=== PATIENT | female | born 1990 | race Hispanic/Latino ===

== ENCOUNTER 2019-09-26 14:09 | Outpatient (CLI) | payer OTHER ==
--- NOTE | 2019-09-26 16:08 | ULT ---
Ultrasound left neck: DATE: 09/26/2019 HISTORY: 29-year-old female with palpable lump, ICD-10: "R 59.1 lymphadenopathy of head and neck" TECHNIQUE: Focused ultrasound using high frequency transducer, of the palpable lump. FINDINGS: Images are labeled as "just below inferior/upper jaw" and demonstrate a well-circumscribed, very hypo echoic 1.4 x 0.9 x 0.7 cm superficially located mass. It has a small fatty hilum that has blood flow. The findings are consistent with a lymph node. This mass is surrounded on at least 3 sides by h omogeneously hyperechoic tissue which presumably represents parotid parenchyma. If so, then this would be an intraparotid lymph node. IMPRESSION: based on the above information, this is consistent with a slightly prominent intraparotid lymph node.
== END 2019-09-26 14:10 | disposition home or self-care (01) ==
LOC: BICULT 14:09
PROVIDERS: ATTEND Family Medicine
DX: R59.1 Generalized enlarged lymph nodes (principal)
CPT/HCPCS: 76536

== ENCOUNTER 2019-10-25 15:03 | Outpatient (CLI) | payer OTHER ==
[~2019-10-25 15:03] MED LIST: Iopamidol-370 76% 500 ML 1 ML ONE
--- NOTE | 2019-10-25 16:20 | CT ---
CT neck soft tissues with contrast: 10/25/2019 HISTORY: 29-year-old female with left parotid mass FINDINGS: At the posterior edge of the superficial lobe of the left parotid gland, there is an approximately 1. 2 x 0.6 x 1 cm moderately enhancing well-circumscribed soft tissue density nodule with fairly homogeneous attenuation. Based on the fact that there are other, similar appearing nodules (but small er,) the contralateral right parotid gland, and based on the appearance of the ultrasound of 09/26/2019, this is consistent with a mildly enlarged intraparotid lymph node. There are multiple enlarged left level IIb enlarged lymph nodes. For example, a typical one measures approximately 1 x 1.5 x 1.5 cm. In addition to numerous shotty multilevel bilateral cervical lymph nodes, bilateral supraclavicular l ymph nodes that are mildly enlarged, on the order of approximately slightly greater than 1 cm in greatest dimension each, have somewhat abnormally round shapes. There is an unusual tight cluster of several lymph nodes in the right supraclavicular region. There are bilateral mildly enlarged level 1B lymph nodes. There is an enlarged 1.5 x 1 x 0.8 cm lymph node anterior to the left external auditory canal. Thyroid gland is at the upper limits of normal in size. Larynx is normal. Bilateral submandibular gla nds are normal. The right palatine tonsil appears asymmetrically slightly thicker than the left. Normal lingual tonsi l. Mild adenoid prominence is not unusual for this age. No destructive osseous lesion. No abscess. Other than the lymph nodes, no significant abnormality is identified involving the parapharyngeal, re tropharyngeal, sublingual, submandibular, camera systems engineer, and posterior cervical, spaces. IMPRESSION: 1.) Nonspecific cervical lymphadenopathy. This consists of a cluster of multiple enlarged left level IIb lymph nodes, and several mildly enlarged bilateral supraclavicular lymph nodes. 2) the palpable left parotid mass represents the largest one of several mildly enlarged intraparotid lymph nodes
== END 2019-10-25 15:04 | disposition home or self-care (01) ==
LOC: BICCT 15:03
PROVIDERS: ATTEND Otolaryngology Plastic Surgery within the Head & Neck
DX: K11.8 Other diseases of salivary glands (principal); R59.0 Localized enlarged lymph nodes
CPT/HCPCS: 70491; Q9967

== ENCOUNTER 2024-04-20 19:49 | Emergency (ER) | payer MEDICAID, SELFPAY ==
[2024-04-20 20:53] LABS: Bacteria/HPF None Seen HPF (None Seen); Bilirubin Negative (Negative); Blood, Urine 3+ (Negative); CAUTI Indications for Culture Dysuria,urgency,freq; Clarity Turbid (Clear); Glucose, Urine (Dipstick) Normal (Negative); Ketone, Urine 40 mg/dL (Negative); Leukocyte Negative Leu/uL (Negative); Nitrite Negative (Negative); Protein, Urine (Dipstick) 50 mg/dL (Neg-Trace); RBC/HPF Greater than 50 HPF (0-3); Specific Gravity, Urine 1.029 (1.002-1.036); Squamous Epithelial 0-3 HPF (0-3); Urobilinogen Normal mg/dL (Less than 2); pH, Urine 5.5 (5.0-9.0)
[2024-04-20 20:55] LABS: Urine Culture Reflex Yes Yes
[2024-04-20 20:56] LABS: #Basophils 0.03 10x3/uL (0.0-0.2); %Basophils 0.2 % (0.0-1.0); %Eosinophils 0.7 % (0.0-10.0); %Monocytes 3.2 % (0.0-10.0); %Neutrophils 79.4 % (42.0-75.0); Hematocrit 35.1 % (36.0-47.0); Hemoglobin 11.7 g/dL (12.0-16.0); Mean Corpuscular HGB CONC 33.3 g/dL (32.0-36.0); Mean Corpuscular Hemoglobin 28.1 pg (27.0-31.0); Mean Corpuscular Volume 84.2 fL (78.0-98.0); Mean Platelet Volume 9.7 fL (7.4-10.4); Platelet Count 261 10x3/uL (130-400); RBC Distribution Width 13.3 % (11.5-14.5); Red Blood Cell (RBC) Count 4.17 mill/uL (4.20-5.40)
[2024-04-20 21:14] LABS: ALT (SGPT) 9 U/L (8-55); AST (SGOT) 12 U/L (5-34); Albumin 3.4 g/dL (3.5-5.0); Alkaline Phosphatase 57 U/L (40-110); Anion Gap 15 mmol/L (10-20); BUN (Urea Nitrogen) 6 mg/dL (7.0-18.7); Bilirubin, Total 0.5 mg/dL (0.2-1.2); Calc. Creatinine Clearance 0 mL/min (70-130); Calcium 9.3 mg/dL (7.8-10.44); Carbon Dioxide 19 mmol/L (22-29); Chloride 106 mmol/L (98-107); Estimated GFR 123; Globulin 4.1 g/dL (2.4-3.5); Glucose 108 mg/dL (70-105); Lipase 32 U/L (8-78); Potassium 3.7 mmol/L (3.5-5.1); Protein, Total 7.5 g/dL (6.0-8.3); Sodium 136 mmol/L (136-145)
== END 2024-04-20 22:59 | disposition home or self-care (01) ==
LOC: ERS 19:49
DX: O23.42 Unspecified infection of urinary tract in pregnancy, second trimester (principal); N39.0 Urinary tract infection, site not specified; Z3A.18 18 weeks gestation of pregnancy
CPT/HCPCS: 36415; 76805; 80053; 81001; 83690; 84702; 85025; 87086

== ENCOUNTER 2024-05-16 15:26 | Outpatient (CLI) | payer OTHER | END 2024-05-16 15:27 | disposition home or self-care (01) | LOC: ULT 15:26 | PROVIDERS: ATTEND Family Medicine | DX: O09.892 Supervision of other high risk pregnancies, second trimester (principal); Z3A.22 22 weeks gestation of pregnancy | CPT/HCPCS: 76805 ==